=== PATIENT | male | born 1980 | race Caucasian/White ===

== ENCOUNTER 2016-05-26 18:51 | Emergency (ER) | payer SELFPAY ==
[~2016-05-26 18:51] MED LIST: CYCLOBENZAPRINE10 M1 PO; DELTASONE10 MG PO; FLEXERIL10 MG PO; NEURONTIN300 M1 PO; NO HOME MEDICATION XX; NORCO 5-325 TA1 EACH PO; NORCO 5/325 TAB1 TAB PO; PEN-VEE K500 MG PO; PREDNISONE20 MG PO; ROBAXIN-750750 M1 PO; SKELAXIN800 M3 PO
[2016-05-26] MEDS ORDERED: CYCLOBENZAPRINE5 M1 PO (21:15)
[2016-05-26] MEDS ORDERED: NORCO 5-325 TA1 EACH PO (21:15)
[2016-08-10] MEDS ORDERED: HYDROCODON-ACE1 EA16 PO (23:16)
[2016-08-10] MEDS ORDERED: ZOFRAN4 M2 PO (23:16)
== END 2016-05-26 21:33 ==
LOC: EDMED 18:51
DX: M54.5 Low back pain (principal); R11.2 Nausea with vomiting, unspecified; F17.210 Nicotine dependence, cigarettes, uncomplicated
CPT/HCPCS: J1885